=== PATIENT | female | born 1990 | race Caucasian/White ===

== ENCOUNTER 2017-02-21 09:25 | Inpatient (IN) | payer OTHER, MEDICAID ==
[2017-02-21] MEDS ORDERED: Lactated Ringers 1,000 ML IV ONE (10:16)
[2017-02-21] MEDS ORDERED: Betamethasone Acetate/Betamethasone Sod Phosphate 30 MG/5 ML MDV IM ONE (10:16)
[2017-02-21] MEDS ORDERED: Betamethasone Acetate/Betamethasone Sod Phosphate 30 MG/5 ML MDV ONE (10:17)
[2017-02-21] MEDS ORDERED: Lactated Ringers 1,000 ML ONE (10:18)
[2017-02-21] MEDS ORDERED: Citric Acid/Sodium Citrate Solution 30 ML Cup PO ONE (10:34)
[2017-02-21] MEDS ORDERED: ceFAZolin 2 GM in Premix Bag 1 BAG IV ONE (10:34)
[2017-02-21] MEDS ORDERED: Sodium Chloride 0.9% 10 ML Syringe FLUSH PRN (10:34)
[2017-02-21] MEDS ORDERED: Metoclopramide 10 MG/2 ML SDV IVPUSH ONE (10:34)
[2017-02-21] MEDS ORDERED: Metoclopramide 10 MG/2 ML SDV ONE (10:35)
[2017-02-21] MEDS ORDERED: Citric Acid/Sodium Citrate Solution 30 ML Cup ONE (10:36)
[2017-02-21] MEDS ORDERED: Lactated Ringers 1,000 ML IV SCH (10:45)
--- NOTE | 2017-02-21 11:35 | PCM.POSTAN ---
POST ANESTHESIA ASSESSMENT - MENTAL STATUS Mental Status: alert, oriented - VITAL SIGNS Pulse Rate: 83 SaO2: 100 Resp Rate: 13 Blood Pressure: 112/59 Temperature: 36.2 C - RESPIRATORY Respiratory Status: respiratory rate WNL, airway patent, O2 saturation stable, supplemental oxygen - CARDIOVASCULAR CV Status: pulse rate WNL, blood pressure stable - GASTROINTESTINAL GI Status: no symptoms - PAIN Pain Score: 0 - POST OP HYDRATION Hydration Status: adequate & stable
--- NOTE | 2017-02-21 11:39 | PCM.LDHP ---
L&D History of Present Illness - General Date of Service: 02/21/17 Admit Problem/Dx: Patient Status Order with Admit Dx/Problem 02/21/17 10:35 Patient Status [ADT] Routine Admission Diagnosis/Problem Admission Diagnosis/Problem Normal Source of Information: Patient History Limitations: Reports: No limitations - History of Present Illness Introduction:: Patient is a 26-year-old at 35-0/7 weeks who presented to labor and delivery after clinic evaluation this morning. She called in to clinic this morning with complaints of a moderate amount of bright red bleeding. Speculum exam done at that time showed scant amounts of blood. She was, however, asked to present to labor and delivery for an NST and repeat assessment. Approximately an hour into this monitoring she had a dramatic increase in bleeding and so I was called urgently. Patient at this time still complains of no pain. No fluid leaking other than blood. 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 Para: 0 Social & Family History - Tobacco Use Smoking Status *Q: Current Every Day Smoker - Alcohol Use Alcohol Use History: No - Recreational Drug Use Recreational Drug Use: No H&P Review of Systems - Review of Systems: Review Of Systems: See Below General: Reports: night sweats Pulmonary: Reports: No Symptoms Cardiovascular: Reports: no symptoms Gastrointestinal: Reports: No symptoms Genitourinary: Reports: other (bleeding) Musculoskeletal: Reports: no symptoms Psychiatric: Reports: no symptoms Neurological: Reports: No Symptoms L&D Exam - Exam Exam: See Below - Vital Signs Weight: 70.307 kg - OB Specific Contraction Intensity: Mild movement: active heart tones: present heart tones per min: 135 Heart Rate (FHR) Variability: Moderate (6-25 bmp) Presentation: Vertex - Exam General: alert, oriented, cooperative Lungs: Clear to auscultation, Normal respiratory effort Cardiovascular: regular rate, regular rhythm Abdomen: soft Genitourinary: Other (Patient with large amount of blood on pad along with clot) Extremities: normal inspection Skin: warm, dry, intact - Patient Data Lab Results last 24 hrs: Laboratory Results - last 24 hr 02/21/17 02/21/17 Range/Units 10:40 11:00 WBC 14.35 H (3.98-10.04) K/mm3 RBC 3.92 L (3.98-5.22) M/mm3 Hgb 12.3 (11.2-15.7) gm/L Hct 36.1 (34.1-44.9) % MCV 92.1 (79.4-94.8) fl MCH 31.4 (25.6-32.2) pg MCHC 34.1 (32.2-35.5) g/dl RDW Std Deviation 43.7 (36.4-46.3) fL Plt Count 41 L (182-369) K/mm3 MPV 11.3 (9.4-12.3) fl Cord ABG pH 7.30 (7.22-7.32) Cord ABG pCO2 53.5 (42-58) Cord ABG pO2 24 (12-24) Cord ABG HCO3 25.3 (24-26) Cord ABG Base Excess -1.5 (-5.5-0.1) Cord VBG pH 7.31 (7.28-7.40) Cord VBG pCO2 50.4 H (32.8-38.6) Cord VBG HCO3 24.5 H (19-24) Cord VBG Base Excess -1.9 (-4.4-0.4) Result Diagrams: 02/21/17 10:40 - Problem List (1) 35 weeks gestation of SNOMED Code(s): 11780975 ICD Code: Z3A.35 - 35 WEEKS GESTATION OF Status: Acute Current Visit: Yes (2) Placental abruption SNOMED Code(s): 444719355, 619433984 ICD Code: O45.90 - PREMATURE SEPARATION OF PLACENTA, UNSP, UNSP TRIMESTER Status: Acute Current Visit: Yes Qualifiers: Trimester: third trimester Qualified Code(s): O45.93 - Premature separation of placenta, unspecified, third trimester Problem List Initiated/Reviewed/Updated: Yes Orders Last 24hrs: Active Orders 24 hr Category Date Time Status Patient Status [ADT] Routine ADT 02/21/17 10:35 Active Communication Order [RC] ROUTINE Care 02/21/17 10:35 Active Heart Tones [RC] PER UNIT ROUTINE Care 02/21/17 10:35 Active Peripheral IV Care [RC] . DIRECTED Care 02/21/17 10:35 Active Procedure Site Prep Instruct [RC] ASDIRECTED Care 02/21/17 10:35 Active Verify Patient Consent Obtain [RC] PER UNIT ROUTINE Care 02/21/17 10:35 Active Vital Signs [RC] PFP Care 02/21/17 10:35 Active Nothing Per Oral Diet [DIET] Diet 02/21/17 Breakfast Active BLOOD GAS ARTERIAL UMBILICAL [BG] Routine Lab 02/21/17 11:00 Results BLOOD GAS VENOUS UMBILICAL [BG] Routine Lab 02/21/17 11:00 Results FIBRINOGEN [COAG] Stat Lab 02/21/17 10:34 Ordered INR,PT,PROTHROMBIN TIME [COAG] Stat Lab 02/21/17 10:34 Ordered PTT,PARTIAL THROMBOPLSTIN TIME [COAG] Stat Lab 02/21/17 10:34 Ordered TYPE AND SCREEN [BBK] Routine Lab 02/21/17 10:40 Received Lactated Ringers [Ringers, Lactated] 1,000 ml Med 02/21/17 10:45 Active IV ASDIRECTED Sodium Chloride 0.9% [Saline Flush] Med 02/21/17 10:34 Active 10 ml FLUSH ASDIRECTED PRN Peripheral IV Insertion Adult [OM.PC] Routine Oth 02/21/17 10:18 Ordered Peripheral IV Insertion Adult [OM.PC] Routine Oth 02/21/17 10:35 Ordered Schedule Procedure [COMM] Per Unit Routine Oth 02/21/17 10:35 Ordered Resuscitation Status Routine Resus Stat 02/21/17 10:34 Ordered Medication Orders Lactated Ringer's (Ringers, Lactated) 1,000 mls @ 125 mls/hr IV ASDIRECTED SARAH Sodium Chloride (Saline Flush) 10 ml FLUSH ASDIRECTED PRN PRN Reason: Keep Vein Open Assessment/Plan Comment:: 26-year-old at 35-0/7 weeks gestation with large amount of bleeding concerning for placental abruption. Stat CBC and type and screen along with fibrinogen, PT PTT to be drawn. Proceed immediately to . Ancef ordered. Or crew alerted along with Pediatrics.
--- NOTE | 2017-02-21 11:42 | PCM.OPNOTE ---
- General Post-Op/Procedure Note Date of Surgery/Procedure: 02/21/17 Operative Procedure(s): Primary low transverse Findings: * In OR when moving patient to operating bed there was ~500 cc of clot noted on linens. * With hysterotomy placenta attempted to delivery along with head - concerning for abruption * Baby boy in a vertex presentation with weight of 4 obs 10 oz and APGARS of 8 & 9 Pre Op Diagnosis: Vaginal bleeding - concerning for abruption. Post-Op Diagnosis: Same Anesthesia Technique: General ET tube Primary Surgeon: Temitope Poole Secondary Surgeon: Nicho Hernandez Anesthesia Provider: Ameya Ceballos Pathology: * Cord gas obtained * Cord blood obtained * Placenta sent to pathology Fluid Replacement, Intraop: 1,700 Output, Urine Amount: 50 EBL in mLs: 600 Complications: None Condition: Good Free Text/Narrative:: The risks, benefits, indications, potential complications, and alternatives were explained to the patient and informed consent obtained. The patient was placed in a supine position and then draped and prepped in the usual sterile manner. General anesthesia then induced. A Pfannenstiel incision was made and carried down through the subcutaneous tissue to the fascia. Fascial incision was made and extended transversely. The fascia was from the underlying rectus tissue superiorly and inferiorly. The peritoneum was identified and entered. Peritoneal incision was extended longitudinally. The utero-vesical peritoneal reflection was incised transversely and the bladder flap was bluntly freed from the lower uterine segment. A low transverse uterine incision was made sharply with a scalpel and extended bluntly in a cephalocaudad direction. A baby boy was delivered from a vertex presentation with APGARS as above. After the umbilical cord was clamped a segment was obtained for cord gas. Next, cut cord blood was obtained for evaluation. The placenta was removed intact and sent to pathology. The uterus was exteriorized and cleared of clots. The uterine outline, tubes and ovaries appeared normal. The uterine incision was closed with running locked sutures of 0 Vicryl. Hemostasis was obtained with a second imbricating layer of 0 vicryl. The uterus was then placed back into the abdomen. The infracolic gutters were cleared of blood clots. The fascia was then re-approximated with running sutures of 0 Vicryl. The subcutaneous tissue was irrigated with sterile warm normal saline, hemostasis obtained with cautery. This layer was also closed with a running 0 vicryl. The skin was re-approximated with running Subcuticular 4-0 monocryl sutures. Instrument, sponge, and needle counts were correct prior the abdominal closure and at the conclusion of the case.
--- NOTE | 2017-02-21 11:59 | PCM.PREANE ---
Preanesthetic Assessment - Anesthesia/Transfusion/Family Hx Anesthesia History: Prior Anesthesia Without Reaction Family History of Anesthesia Reaction: No Transfusion History: Prior Transfusion Without Reaction - Review of Systems General: No Symptoms Pulmonary: No Symptoms Cardiovascular: No Symptoms Gastrointestinal: No symptoms, Nausea (Tuesday) Neurological: No Symptoms Other: Reports: None - Physical Assessment NPO Status Date: 02/21/17 NPO Status Time: 10:00 Pulse: 83 O2 Sat by Pulse Oximetry: 100 Respiratory Rate: 13 Blood Pressure: 112/59 Temperature: 36.2 C Vital Signs: Last Vital Signs Temp 97.1 F 02/21/17 11:35 Pulse 83 02/21/17 11:35 Resp 13 02/21/17 11:35 BP 112/59 L 02/21/17 11:35 Pulse Ox 100 02/21/17 11:35 Height: 1.6 m Weight: 70.307 kg ASA Class: 2E Mental Status: Alert & Oriented x3 Airway Class: Mallampati = 1 Dentition: Reports: Normal Dentition Thyro-Mental Finger Breadths: 3 Mouth Opening Finger Breadths: 3 ROM/Head Extension: Full Lungs: Clear to auscultation, Normal respiratory effort Cardiovascular: Regular Rate, Regular Rhythm, No Murmurs - Lab Values: 02/21/17 hgb 12.3 Plt [id number] - Allergies Allergies/Adverse Reactions: Allergies Allergy/AdvReac Type Severity Reaction Status Date / Time No Known Allergies Allergy Verified 02/21/17 09:52 MDT - Blood Blood Available: No - Acknowledgements Anesthesia Type Planned: General Anesthesia Pt an Appropriate Candidate for the Planned Anesthesia: Yes Alternatives and Risks of Anesthesia Discussed w Pt/Guardian: Yes Pt/Guardian Understands and Agrees with Anesthesia Plan: Yes PreAnesthesia Questionnaire Cardiovascular History: Reports: None Respiratory History: Reports: None Gastrointestinal History: Reports: GERD (with preg occ) : 1 (35 weeks) Para: 0 - Past Surgical History HEENT Surgical History: Reports: Oral surgery - SUBSTANCE USE Smoking Status *Q: Current Every Day Smoker (half a pack a day for 10 years) Tobacco Use Within Last Twelve Months: No Second Hand Smoke Exposure: Yes Days Per Week of Alcohol Use: 0 (1 day a week since before ) Recreational Drug Use History: No - HOME MEDS Home Medications: Home Meds PNV95/Ferrous Fumarate/FA [ Tablet] 1 tab PO DAILY 12/05/16 [History] Acetaminophen/oxyCODONE [Percocet 325-5 MG] 2 tab PO Q4H PRN #30 tablet [Rx] Docusate Sodium [Colace] 100 mg PO Q12H PRN #0 cap 02/23/17 [Rx] Ibuprofen [IJD: Ibuprofen] 600 mg PO Q6H PRN #0 tablet 02/23/17 [Rx] - CURRENT (IN HOUSE) MEDS Current Meds: Current Medications Fentanyl (Sublimaze) 50 mcg IVPUSH Q5M PRN PRN Reason: Pain Hydromorphone HCl (Dilaudid) 0.5 mg IVPUSH Q15M PRN PRN Reason: severe pain Stop: 02/21/17 11:19 Meperidine HCl (Demerol) 12.5 mg IVPUSH ONETIME PRN PRN Reason: shivering Stop: 02/22/17 11:04 Ondansetron HCl (Zofran) 4 mg IVPUSH ONETIME PRN PRN Reason: Nausea/Vomiting Discontinued Medications Ephedrine Sulfate (Ephedrine In Ns) Confirm Administered Dose 25 mg .ROUTE .STK- MED ONE Stop: 02/21/17 11:23 Fentanyl (Sublimaze) Confirm Administered Dose 250 mcg .ROUTE .STK-MED ONE Stop: 02/21/17 11:12 Lidocaine HCl (Xylocaine-Mpf 1%) Confirm Administered Dose 4 mls @ as directed .ROUTE .STK-MED ONE Stop: 02/21/17 10:58 Lactated Ringer's (Ringers, Lactated) Confirm Administered Dose 1,000 mls @ as directed .ROUTE .STK-MED ONE Stop: 02/21/17 11:06 Lactated Ringer's (Ringers, Lactated) Confirm Administered Dose 1,000 mls @ as directed .ROUTE .STK-MED ONE Stop: 02/21/17 11:06 Morphine Sulfate (Duramorph Pf) Confirm Administered Dose 10 mg .ROUTE .STK-MED ONE Stop: 02/21/17 10:56 Oxytocin (Pitocin) Confirm Administered Dose 20 unit .ROUTE .STK-MED ONE Stop: 02/21/17 11:04 Propofol (Diprivan 20 Ml) Confirm Administered Dose 200 mg .ROUTE .STK-MED ONE Stop: 02/21/17 10:58 Succinylcholine Chloride (Succinylcholine In Ns Pf) Confirm Administered Dose 100 mg .ROUTE .STK-MED ONE Stop: 02/21/17 10:58 Preanesthetic Assessment - PHYSICAL ASSESSMENT HR: 83 O2 Sat by Pulse Oximetry: 100 RR: 13 BP: 112/59 Temp: 36.2 C Vital Signs: Last Vital Signs Temp 97.1 F 02/21/17 11:35 Pulse 83 02/21/17 11:35 Resp 13 02/21/17 11:35 BP 112/59 L 02/21/17 11:35 Pulse Ox 100 02/21/17 11:35 Height: 1.6 m Weight: 70.307 kg - ALLERGIES Allergies/Adverse Reactions: Allergies Allergy/AdvReac Type Severity Reaction Status Date / Time No Known Allergies Allergy Verified 02/21/17 09:52 MDT
[2017-02-21] MEDS ORDERED: diphenhydrAMINE 50 MG/ML SDV IVPUSH PRN (13:09)
[2017-02-21] MEDS ORDERED: Ondansetron 4 MG/2 ML SDV IV PRN (13:09)
[2017-02-21] MEDS ORDERED: Dextrose 5%-0.45% NaCl 1,000 ML IV SCH (13:09)
[2017-02-21] MEDS ORDERED: Dextrose 5%-Lactated Ringers 1,000 ML IV SCH (13:09)
[2017-02-21] MEDS ORDERED: Docusate Sodium 100 MG Cap PO PRN (13:09)
[2017-02-21] MEDS ORDERED: Lanolin 100% Cream 7 GM Tube TOP PRN (13:09)
[2017-02-21] MEDS: Acetaminophen/oxyCODONE 325-5 MG Tab PO PRN ×2 (16:25→20:34)
[2017-02-21] MEDS: ceFAZolin 1 GM in Premix Bag 1 BAG IV SCH (16:38)
[2017-02-22] MEDS: Acetaminophen/oxyCODONE 325-5 MG Tab PO PRN ×4 (00:37→21:57)
[2017-02-22] MEDS: ceFAZolin 1 GM in Premix Bag 1 BAG IV SCH (00:55)
--- NOTE | 2017-02-22 07:10 | PCM.PNPP ---
- General Info Date of Service: 02/22/17 Functional Status: Reports: pain controlled, tolerating diet, ambulating, urinating - Review of Systems General: Reports: No Symptoms Pulmonary: Reports: no symptoms Cardiovascular: Reports: No Symptoms Gastrointestinal: Reports: No symptoms Genitourinary: Reports: no symptoms Musculoskeletal: Reports: no symptoms - Patient Data Vital Signs - most recent: Last Vital Signs Temp 36.5 C 02/22/17 04:35 Pulse 76 02/22/17 04:35 Resp 18 02/22/17 04:35 BP 123/55 L 02/22/17 04:35 Pulse Ox 94 L 02/22/17 04:35 Weight - most recent: 70.307 kg I&O - last 24 hours: Intake & Output 02/21/17 02/22/17 02/22/17 22:59 06:59 14:59 Intake Total 0 Output Total 1300 750 Balance -1300 -750 Lab Results - last 24 hrs: Laboratory Results - last 24 hr 02/21/17 02/21/17 02/21/17 Range/Units 10:40 10:40 11:00 WBC 14.35 H (3.98-10.04) K/mm3 RBC 3.92 L (3.98-5.22) M/mm3 Hgb 12.3 (11.2-15.7) gm/L Hct 36.1 (34.1-44.9) % MCV 92.1 (79.4-94.8) fl MCH 31.4 (25.6-32.2) pg MCHC 34.1 (32.2-35.5) g/dl RDW Std Deviation 43.7 (36.4-46.3) fL Plt Count 41 L (182-369) K/mm3 MPV 11.3 (9.4-12.3) fl PT (8.0-13.0) SECONDS INR APTT (22-36) SECONDS Fibrinogen (200-400) mg/dL Cord ABG pH 7.30 (7.22-7.32) Cord ABG pCO2 53.5 (42-58) Cord ABG pO2 24 (12-24) Cord ABG HCO3 25.3 (24-26) Cord ABG Base Excess -1.5 (-5.5-0.1) Cord VBG pH 7.31 (7.28-7.40) Cord VBG pCO2 50.4 H (32.8-38.6) Cord VBG pO2 34 H (28-32) Cord VBG HCO3 24.5 H (19-24) Cord VBG Base Excess -1.9 (-4.4-0.4) Urine Opiates Screen (NEGATIVE) Ur Buprenorphine Scrn (NEGATIVE) Ur Oxycodone Screen (NEGATIVE) Urine Methadone Screen (NEGATIVE) Ur Propoxyphene Screen (NEGATIVE) Ur Barbiturates Screen (NEGATIVE) Ur Tricyclics Screen (NEGATIVE) Ur Phencyclidine Scrn (NEGATIVE) Ur Amphetamine Screen (NEGATIVE) U Methamphetamines Scrn (NEGATIVE) U Benzodiazepines Scrn (NEGATIVE) U Cocaine Metab Screen (NEGATIVE) U Marijuana (THC) Screen (NEGATIVE) Blood Type A POSITIVE Gel Antibody Screen Negative 02/21/17 02/21/17 Range/Units 11:47 16:25 WBC (3.98-10.04) K/mm3 RBC (3.98-5.22) M/mm3 Hgb (11.2-15.7) gm/L Hct (34.1-44.9) % MCV (79.4-94.8) fl MCH (25.6-32.2) pg MCHC (32.2-35.5) g/dl RDW Std Deviation (36.4-46.3) fL Plt Count (182-369) K/mm3 MPV (9.4-12.3) fl PT 9.6 (8.0-13.0) SECONDS INR 0.89 APTT 27 (22-36) SECONDS Fibrinogen 423.5 H (200-400) mg/dL Cord ABG pH (7.22-7.32) Cord ABG pCO2 (42-58) Cord ABG pO2 (12-24) Cord ABG HCO3 (24-26) Cord ABG Base Excess (-5.5-0.1) Cord VBG pH (7.28-7.40) Cord VBG pCO2 (32.8-38.6) Cord VBG pO2 (28-32) Cord VBG HCO3 (19-24) Cord VBG Base Excess (-4.4-0.4) Urine Opiates Screen Presumptive positive H (NEGATIVE) Ur Buprenorphine Scrn Negative (NEGATIVE) Ur Oxycodone Screen Negative (NEGATIVE) Urine Methadone Screen Negative (NEGATIVE) Ur Propoxyphene Screen Negative (NEGATIVE) Ur Barbiturates Screen Negative (NEGATIVE) Ur Tricyclics Screen Negative (NEGATIVE) Ur Phencyclidine Scrn Negative (NEGATIVE) Ur Amphetamine Screen Negative (NEGATIVE) U Methamphetamines Scrn Negative (NEGATIVE) U Benzodiazepines Scrn Negative (NEGATIVE) U Cocaine Metab Screen Negative (NEGATIVE) U Marijuana (THC) Screen Negative (NEGATIVE) Blood Type Gel Antibody Screen Med Orders - Current: Current Medications Diphenhydramine HCl (Benadryl) 25 mg IVPUSH Q6H PRN PRN Reason: Itching or Nausea Docusate Sodium (Colace) 100 mg PO Q12H PRN PRN Reason: Constipation Emollient Ointment (Lansinoh Hpa) 0 gm TOP ASDIRECTED PRN PRN Reason: Sore Nipples Dextrose/Sodium Chloride (Dextrose 5%-1/2 Ns) 1,000 mls @ 125 mls/hr IV ASDIRECTED SARAH Ondansetron HCl (Zofran) 4 mg IV Q8H PRN PRN Reason: Nausea/Vomiting Oxycodone/Acetaminophen (Percocet 325-5 Mg) 2 tab PO Q4H PRN PRN Reason: Pain (moderate 4-6) Last Admin: 02/22/17 05:28 Dose: 1 tab Discontinued Medications Betamethasone Acet/Betameth SodPhos (Celestone Soluspan 6 Mg/Ml) 12 mg IM ONETIME ONE Stop: 02/21/17 10:17 Last Admin: 02/21/17 10:35 Dose: 12 mg Betamethasone Acet/Betameth SodPhos (Celestone Soluspan 6 Mg/Ml) Confirm Administered Dose 30 mg .ROUTE .STK-MED ONE Stop: 02/21/17 10:18 Last Admin: 02/21/17 14:19 Dose: Not Given Citric Acid/Sodium Citrate (Bicitra Solution) 30 ml PO ONETIME ONE Stop: 02/21/17 10:35 Last Admin: 02/21/17 10:38 Dose: 30 ml Citric Acid/Sodium Citrate (Bicitra Solution) Confirm Administered Dose 30 ml .ROUTE .STK-MED ONE Stop: 02/21/17 10:37 Last Admin: 02/21/17 14:58 Dose: Not Given Lactated Ringer's (Ringers, Lactated) 1,000 mls @ 1,000 mls/hr IV .BOLUS ONE Stop: 02/21/17 11:15 Last Admin: 02/21/17 10:30 Dose: 1,000 mls/hr Lactated Ringer's (Ringers, Lactated) Confirm Administered Dose 1,000 mls @ as directed .ROUTE .STK-MED ONE Stop: 02/21/17 10:19 Last Admin: 02/21/17 14:19 Dose: Not Given Lactated Ringer's (Ringers, Lactated) 1,000 mls @ 125 mls/hr IV ASDIRECTED SARAH Cefazolin Sodium/Dextrose 2 gm (/ Premix) 50 mls @ 100 mls/hr IV ONETIME ONE Stop: 02/21/17 11:03 Last Admin: 02/21/17 14:20 Dose: Not Given Dextrose/Lactated Ringer's (Dextrose 5%-Lactated Ringers) 1,000 mls @ 125 mls/ hr IV ASDIRECTED SARAH Stop: 02/21/17 21:08 Last Admin: 02/21/17 16:27 Dose: Not Given Cefazolin Sodium/Dextrose 1 gm (/ Premix) 50 mls @ 100 mls/hr IV Q8H SARAH Stop: 02/22/17 01:29 Last Admin: 02/22/17 00:55 Dose: 100 mls/hr Metoclopramide HCl (Reglan) 10 mg IVPUSH ONETIME ONE Stop: 02/21/17 10:35 Last Admin: 02/21/17 10:37 Dose: 10 mg Metoclopramide HCl (Reglan) Confirm Administered Dose 10 mg .ROUTE .STK-MED ONE Stop: 02/21/17 10:36 Last Admin: 02/21/17 14:58 Dose: Not Given Sodium Chloride (Saline Flush) 10 ml FLUSH ASDIRECTED PRN PRN Reason: Keep Vein Open - Interaction Infant Disposition, : in Room with Family Infant Interaction: Holding Feeding: Attempted ; Nursed Fair/Poor Support Person: - Recovery Exam Fundal Tone: Firm Fundal Level: 1 Fingerbreadths Below Umbilicus Fundal Placement: Midline Lochia Amount: Moderate Lochia Color: Rubra/Red Perineum Description: Intact, Minimal Bruising/Swelling Episiotomy/Laceration: None Bladder Status: Voiding Urinary Elimination: Voided - Exam General: alert, oriented, cooperative Lungs: Clear to auscultation, Normal respiratory effort Cardiovascular: Regular Rate, Regular Rhythm Abdomen: soft, tenderness (appropriate post op) Extremities: no edema Skin: warm, dry, intact Wound/Incisions: dressing dry and intact - Problem List & Annotations (1) 35 weeks gestation of SNOMED Code(s): 47536731 Code(s): Z3A.35 - 35 WEEKS GESTATION OF Status: Acute Current Visit: Yes (2) Placental abruption SNOMED Code(s): 949827889, 617632901 Code(s): O45.90 - PREMATURE SEPARATION OF PLACENTA, UNSP, UNSP TRIMESTER Status: Acute Current Visit: Yes Qualifiers: Trimester: third trimester Qualified Code(s): O45.93 - Premature separation of placenta, unspecified, third trimester (3) S/P primary low transverse SNOMED Code(s): 436873948, 586409107, 737296682, 107542681 Code(s): Z98.891 - HISTORY OF UTERINE SCAR FROM PREVIOUS SURGERY Status: Acute Current Visit: Yes - Problem List Review Problem List Initiated/Reviewed/Updated: Yes - My Orders Last 24 Hours: My Active Orders 02/21/17 10:34 Resuscitation Status Routine 02/21/17 10:35 Communication Order [RC] ROUTINE Heart Tones [RC] PER UNIT ROUTINE Peripheral IV Care [RC] . DIRECTED Procedure Site Prep Instruct [RC] ASDIRECTED Verify Patient Consent Obtain [RC] PER UNIT ROUTINE Vital Signs [RC] PFP 02/21/17 13:09 Activity as Tolerated [RC] .Routine Antiembolic Devices [RC] Communication Order [RC] Intake and Output [RC] Q4HR May Shower [RC] Notify Provider Intake and Out [RC] ASDIRECTED RT Incentive Spirometry [RC] Q2HWA Vital Signs [RC] Q4HR Acetaminophen/oxyCODONE [Percocet 325-5 MG] 2 tab PO Q4H PRN Dextrose 5%-0.45% NaCl [Dextrose 5%-1/2 NS] 1,000 ml IV ASDIRECTED Docusate Sodium [Colace] 100 mg PO Q12H PRN Lanolin [Lansinoh HPA] See Dose Instructions TOP ASDIRECTED PRN Ondansetron [Zofran] 4 mg IV Q8H PRN diphenhydrAMINE [Benadryl] 25 mg IVPUSH Q6H PRN Assess Lochia [WOMSER] Per Unit Routine Assess Uterine Involution [WOMSER] Per Unit Routine Breast Pump [WOMSER] Per Unit Routine Heat Therapy [OM.PC] Per Unit Routine Sequential Compression Device [OM.PC] Per Unit Routine 02/21/17 Lunch Regular Diet [DIET] 02/22/17 05:11 CBC W/O DIFF,HEMOGRAM [HEME] AM - Assessment Assessment:: 26 y/o G1 now P0101 POD#1 from [facility] at 35 0/7 wks due to placenta abruption - Plan Plan:: Post op * Routine cares * Encourage breast feeding * Discharge home in 2 days * UDS done for abruption and positive for opiates, but collected in PACU. As expected positive from medications given during surgery. No positive for cocaine or methamphetamine * CBC from this AM pending
--- NOTE | 2017-02-22 09:02 | PCM48HPAN ---
Post Anesthesia Note - EVALUATION WITHIN 48HRS OF ANESTHETIC Vital Signs in Normal Range: Yes Patient Participated in Evaluation: Yes Respiratory Function Stable: Yes Airway Patent: Yes Cardiovascular Function Stable: Yes Hydration Status Stable: Yes Pain Control Satisfactory: Yes Nausea and Vomiting Control Satisfactory: Yes Mental Status Recovered: Yes - COMMENTS/OBSERVATIONS Free Text/Narrative:: Pt reports doing well after general anesthetic yesterday. no n/v, f/c. no recall. taking p.o. ambulating and using restroom.
--- NOTE | 2017-02-23 07:07 | PCM.PNPP ---
- General Info Date of Service: 02/23/17 Functional Status: Reports: pain controlled, tolerating diet, ambulating, urinating - Review of Systems General: Reports: No Symptoms Pulmonary: Reports: no symptoms Cardiovascular: Reports: No Symptoms Gastrointestinal: Reports: Abdominal pain Genitourinary: Reports: no symptoms Musculoskeletal: Reports: no symptoms - Patient Data Vital Signs - most recent: Last Vital Signs Temp 37.4 C 02/23/17 03:50 Pulse 95 02/23/17 03:50 Resp 14 02/23/17 03:50 BP 119/65 02/23/17 03:50 Pulse Ox 93 L 02/23/17 03:50 Weight - most recent: 70.307 kg I&O - last 24 hours: Intake & Output 02/22/17 02/23/17 02/23/17 22:59 06:59 14:59 Intake Total 100 Balance 100 Lab Results - last 24 hrs: Laboratory Results - last 24 hr 02/22/17 02/23/17 Range/Units 06:45 06:20 WBC 25.72 H 25.75 H (3.98-10.04) K/mm3 RBC 2.65 L 2.73 L (3.98-5.22) M/mm3 Hgb 8.4 L 8.6 L (11.2-15.7) gm/L Hct 25.1 L 25.9 L (34.1-44.9) % MCV 94.7 94.9 H (79.4-94.8) fl MCH 31.7 31.5 (25.6-32.2) pg MCHC 33.5 33.2 (32.2-35.5) g/dl RDW Std Deviation 43.3 45.1 (36.4-46.3) fL Plt Count 81 L 102 L (182-369) K/mm3 MPV 10.8 10.8 (9.4-12.3) fl Med Orders - Current: Current Medications Diphenhydramine HCl (Benadryl) 25 mg IVPUSH Q6H PRN PRN Reason: Itching or Nausea Docusate Sodium (Colace) 100 mg PO Q12H PRN PRN Reason: Constipation Emollient Ointment (Lansinoh Hpa) 0 gm TOP ASDIRECTED PRN PRN Reason: Sore Nipples Dextrose/Sodium Chloride (Dextrose 5%-1/2 Ns) 1,000 mls @ 125 mls/hr IV ASDIRECTED [facility] Ibuprofen (Motrin) 600 mg PO Q6H PRN PRN Reason: Pain Ondansetron HCl (Zofran) 4 mg IV Q8H PRN PRN Reason: Nausea/Vomiting Oxycodone/Acetaminophen (Percocet 325-5 Mg) 2 tab PO Q4H PRN PRN Reason: Pain (moderate 4-6) Last Admin: 02/22/17 21:57 Dose: 1 tab Discontinued Medications Betamethasone Acet/Betameth SodPhos (Celestone Soluspan 6 Mg/Ml) 12 mg IM ONETIME ONE Stop: 02/21/17 10:17 Last Admin: 02/21/17 10:35 Dose: 12 mg Betamethasone Acet/Betameth SodPhos (Celestone Soluspan 6 Mg/Ml) Confirm Administered Dose 30 mg .ROUTE .STK-MED ONE Stop: 02/21/17 10:18 Last Admin: 02/21/17 14:19 Dose: Not Given Citric Acid/Sodium Citrate (Bicitra Solution) 30 ml PO ONETIME ONE Stop: 02/21/17 10:35 Last Admin: 02/21/17 10:38 Dose: 30 ml Citric Acid/Sodium Citrate (Bicitra Solution) Confirm Administered Dose 30 ml .ROUTE .STK-MED ONE Stop: 02/21/17 10:37 Last Admin: 02/21/17 14:58 Dose: Not Given Lactated Ringer's (Ringers, Lactated) 1,000 mls @ 1,000 mls/hr IV .BOLUS ONE Stop: 02/21/17 11:15 Last Admin: 02/21/17 10:30 Dose: 1,000 mls/hr Lactated Ringer's (Ringers, Lactated) Confirm Administered Dose 1,000 mls @ as directed .ROUTE .STK-MED ONE Stop: 02/21/17 10:19 Last Admin: 02/21/17 14:19 Dose: Not Given Lactated Ringer's (Ringers, Lactated) 1,000 mls @ 125 mls/hr IV ASDIRECTED [facility] Cefazolin Sodium/Dextrose 2 gm (/ Premix) 50 mls @ 100 mls/hr IV ONETIME ONE Stop: 02/21/17 11:03 Last Admin: 02/21/17 14:20 Dose: Not Given Dextrose/Lactated Ringer's (Dextrose 5%-Lactated Ringers) 1,000 mls @ 125 mls/ hr IV ASDIRECTED [facility] Stop: 02/21/17 21:08 Last Admin: 02/21/17 16:27 Dose: Not Given Cefazolin Sodium/Dextrose 1 gm (/ Premix) 50 mls @ 100 mls/hr IV Q8H [facility] Stop: 02/22/17 01:29 Last Admin: 02/22/17 00:55 Dose: 100 mls/hr Metoclopramide HCl (Reglan) 10 mg IVPUSH ONETIME ONE Stop: 02/21/17 10:35 Last Admin: 02/21/17 10:37 Dose: 10 mg Metoclopramide HCl (Reglan) Confirm Administered Dose 10 mg .ROUTE .STK-MED ONE Stop: 02/21/17 10:36 Last Admin: 02/21/17 14:58 Dose: Not Given Sodium Chloride (Saline Flush) 10 ml FLUSH ASDIRECTED PRN PRN Reason: Keep Vein Open - Infant Interaction Disposition, : in Room with Family Infant Interaction: Holding Infant Feeding: Attempted ; Nursed Fair/Poor, Bottle Fed Support Person: - Recovery Exam Fundal Tone: Firm Fundal Level: At Umbilicus Fundal Placement: Midline Lochia Amount: Small Lochia Color: Rubra/Red Perineum Description: Intact, Minimal Bruising/Swelling Episiotomy/Laceration: None Bladder Status: Voiding Urinary Elimination: Voided - Exam General: alert, oriented, cooperative Lungs: Clear to auscultation, Normal respiratory effort Cardiovascular: Regular Rate, Regular Rhythm Abdomen: soft, tenderness (appropriate ) Extremities: no edema Skin: warm, dry, intact Wound/Incisions: healing well, no drainage - Problem List & Annotations (1) 35 weeks gestation of SNOMED Code(s): 30093774 Code(s): Z3A.35 - 35 WEEKS GESTATION OF Status: Acute Current Visit: Yes (2) Placental abruption SNOMED Code(s): 863434858, 899624777 Code(s): O45.90 - PREMATURE SEPARATION OF PLACENTA, UNSP, UNSP TRIMESTER Status: Acute Current Visit: Yes Qualifiers: Trimester: third trimester Qualified Code(s): O45.93 - Premature separation of placenta, unspecified, third trimester (3) S/P primary low transverse SNOMED Code(s): 898069404, 298254429, 135410600, 304304057 Code(s): Z98.891 - HISTORY OF UTERINE SCAR FROM PREVIOUS SURGERY Status: Acute Current Visit: Yes - Problem List Review Problem List Initiated/Reviewed/Updated: Yes - My Orders Last 24 Hours: My Active Orders 02/23/17 07:06 Ibuprofen [Motrin] 600 mg PO Q6H PRN - Assessment Assessment:: 26 y/o G1 now P0101 POD#2 from [facility] at 35 0/7 wks due to placenta abruption - Plan Plan:: Post op * Routine cares * Patient's platelets now up to 100K from a low of 40K prior to surgery. Will add in ibuprofen to percocet regimen for pain control. No further blood counts planned * Encourage breast feeding * Discharge home tomorrow
[2017-02-23] MEDS: Ibuprofen 600 MG Tab PO PRN ×2 (10:22→19:16)
[2017-02-24] MEDS: Ibuprofen 600 MG Tab PO PRN (03:07)
--- NOTE | 2017-02-24 07:27 | PCM.PNPP ---
- General Info Date of Service: 02/24/17 Functional Status: Reports: pain controlled, tolerating diet, ambulating, urinating - Review of Systems General: Reports: No Symptoms Pulmonary: Reports: no symptoms Cardiovascular: Reports: No Symptoms Gastrointestinal: Reports: No symptoms Genitourinary: Reports: no symptoms Musculoskeletal: Reports: no symptoms - Patient Data Vital Signs - most recent: Last Vital Signs Temp 36.8 C 02/24/17 03:04 Pulse 87 02/24/17 03:04 Resp 15 02/24/17 03:04 BP 110/62 02/24/17 03:04 Pulse Ox 98 02/24/17 03:04 Weight - most recent: 70.307 kg Med Orders - Current: Current Medications Diphenhydramine HCl (Benadryl) 25 mg IVPUSH Q6H PRN PRN Reason: Itching or Nausea Docusate Sodium (Colace) 100 mg PO Q12H PRN PRN Reason: Constipation Emollient Ointment (Lansinoh Hpa) 0 gm TOP ASDIRECTED PRN PRN Reason: Sore Nipples Last Admin: 02/23/17 08:50 Dose: 1 applic Dextrose/Sodium Chloride (Dextrose 5%-1/2 Ns) 1,000 mls @ 125 mls/hr IV ASDIRECTED [facility] Ibuprofen (Motrin) 600 mg PO Q6H PRN PRN Reason: Pain Last Admin: 02/24/17 03:07 Dose: 600 mg Ondansetron HCl (Zofran) 4 mg IV Q8H PRN PRN Reason: Nausea/Vomiting Oxycodone/Acetaminophen (Percocet 325-5 Mg) 2 tab PO Q4H PRN PRN Reason: Pain (moderate 4-6) Last Admin: 02/22/17 21:57 Dose: 1 tab Discontinued Medications Betamethasone Acet/Betameth SodPhos (Celestone Soluspan 6 Mg/Ml) 12 mg IM ONETIME ONE Stop: 02/21/17 10:17 Last Admin: 02/21/17 10:35 Dose: 12 mg Betamethasone Acet/Betameth SodPhos (Celestone Soluspan 6 Mg/Ml) Confirm Administered Dose 30 mg .ROUTE .STK-MED ONE Stop: 02/21/17 10:18 Last Admin: 02/21/17 14:19 Dose: Not Given Citric Acid/Sodium Citrate (Bicitra Solution) 30 ml PO ONETIME ONE Stop: 02/21/17 10:35 Last Admin: 02/21/17 10:38 Dose: 30 ml Citric Acid/Sodium Citrate (Bicitra Solution) Confirm Administered Dose 30 ml .ROUTE .STK-MED ONE Stop: 02/21/17 10:37 Last Admin: 02/21/17 14:58 Dose: Not Given Lactated Ringer's (Ringers, Lactated) 1,000 mls @ 1,000 mls/hr IV .BOLUS ONE Stop: 02/21/17 11:15 Last Admin: 02/21/17 10:30 Dose: 1,000 mls/hr Lactated Ringer's (Ringers, Lactated) Confirm Administered Dose 1,000 mls @ as directed .ROUTE .STK-MED ONE Stop: 02/21/17 10:19 Last Admin: 02/21/17 14:19 Dose: Not Given Lactated Ringer's (Ringers, Lactated) 1,000 mls @ 125 mls/hr IV ASDIRECTED [facility] Cefazolin Sodium/Dextrose 2 gm (/ Premix) 50 mls @ 100 mls/hr IV ONETIME ONE Stop: 02/21/17 11:03 Last Admin: 02/21/17 14:20 Dose: Not Given Dextrose/Lactated Ringer's (Dextrose 5%-Lactated Ringers) 1,000 mls @ 125 mls/ hr IV ASDIRECTED [facility] Stop: 02/21/17 21:08 Last Admin: 02/21/17 16:27 Dose: Not Given Cefazolin Sodium/Dextrose 1 gm (/ Premix) 50 mls @ 100 mls/hr IV Q8H [facility] Stop: 02/22/17 01:29 Last Admin: 02/22/17 00:55 Dose: 100 mls/hr Metoclopramide HCl (Reglan) 10 mg IVPUSH ONETIME ONE Stop: 02/21/17 10:35 Last Admin: 02/21/17 10:37 Dose: 10 mg Metoclopramide HCl (Reglan) Confirm Administered Dose 10 mg .ROUTE .STK-MED ONE Stop: 02/21/17 10:36 Last Admin: 02/21/17 14:58 Dose: Not Given Sodium Chloride (Saline Flush) 10 ml FLUSH ASDIRECTED PRN PRN Reason: Keep Vein Open - Interaction Disposition, : [place] in Room with Family Infant Interaction: Holding Infant Feeding: Attempted ; Nursed Fair/Poor, Bottle Fed Infant Support Person: - Recovery Exam Fundal Tone: Firm Fundal Level: 1 Fingerbreadths Below Umbilicus Fundal Placement: Midline Lochia Amount: Small Lochia Color: Rubra/Red Perineum Description: Intact, Minimal Bruising/Swelling Episiotomy/Laceration: None Bladder Status: Voiding Urinary Elimination: Voided - Exam General: alert, oriented, cooperative Lungs: Clear to auscultation, Normal respiratory effort Cardiovascular: Regular Rate, Regular Rhythm Abdomen: soft, no tenderness Extremities: no edema Skin: warm, dry, intact Wound/Incisions: healing well, no drainage - Problem List & Annotations (1) 35 weeks gestation of SNOMED Code(s): 89267917 Code(s): Z3A.35 - 35 WEEKS GESTATION OF Status: Acute Current Visit: Yes (2) Placental abruption SNOMED Code(s): 378363675, 355793510 Code(s): O45.90 - PREMATURE SEPARATION OF PLACENTA, UNSP, UNSP TRIMESTER Status: Acute Current Visit: Yes Qualifiers: Trimester: third trimester Qualified Code(s): O45.93 - Premature separation of placenta, unspecified, third trimester (3) S/P primary low transverse SNOMED Code(s): 002655079, 112964949, 574872795, 554920652 Code(s): Z98.891 - HISTORY OF UTERINE SCAR FROM PREVIOUS SURGERY Status: Acute Current Visit: Yes - Problem List Review Problem List Initiated/Reviewed/Updated: Yes - My Orders Last 24 Hours: My Active Orders 02/23/17 07:06 Ibuprofen [Motrin] 600 mg PO Q6H PRN - Assessment Assessment:: 26 y/o G1 now P0101 POD#3 from [facility] at 35 0/7 wks due to placenta abruption - Plan Plan:: Post op * Routine cares * Encourage breast feeding * Discharge home today
--- NOTE | 2017-02-24 07:30 | PCM.DCSUM1 ---
Discharge Summary - Discharge Data Discharge Date: 02/24/17 Discharge Disposition: Home, Self-Care 01 Condition: Good - Discharge Diagnosis/Problem(s) (1) 35 weeks gestation of SNOMED Code(s): 44255795 ICD Code: Z3A.35 - 35 WEEKS GESTATION OF Status: Acute Current Visit: Yes (2) Placental abruption SNOMED Code(s): 053858178, 087080638 ICD Code: O45.90 - PREMATURE SEPARATION OF PLACENTA, UNSP, UNSP TRIMESTER Status: Acute Current Visit: Yes Qualifiers: Trimester: third trimester Qualified Code(s): O45.93 - Premature separation of placenta, unspecified, third trimester (3) S/P primary low transverse SNOMED Code(s): 005621382, 845269859, 686007275, 132206543 ICD Code: Z98.891 - HISTORY OF UTERINE SCAR FROM PREVIOUS SURGERY Status: Acute Current Visit: Yes - Patient Summary/Data Operative Procedure(s) Performed: Primary low transverse Complications: None Consults: None Recommended Follow-up Testing/Procedures: Follow up with Dr. Poole in 1-2 weeks for incision check Hospital Course: 26 y/o admitted at 35 0/7 wks for complaints of bleeding/spotting. She was first seen in clinic where speculum examination was done which did not document much bleeding, but she was sent to L&D for prolonged monitoring and planned repeat examination. Before next examination patient had a substantial increase in bleeding and began soaking through pads and passing large clots. Stat called and labs revealed plts of 41K consistent with placenta abruption. uncomplicated. See delivery note. she did well and was meeting all goals by POD#3 and was thus discharged to home. - Patient Instructions Diet: Regular Diet as Tolerated Activity: No Lifting Over 10 Pounds Activity, Other: Pelvic rest for 6 weeks Driving: Do Not Drive (While taking narcotics ) Showering/Bathing: May Shower, No Tub Bathing/Swimming Wound/Incision Care: Keep Operative Site/Wound Site Clean and Dry Notify Provider of: Fever, Increased Pain, Swelling and Redness, Drainage, Nausea and/or Vomiting - Discharge Plan Prescriptions/Med Rec: Acetaminophen/oxyCODONE [Percocet 325-5 MG] 2 tab PO Q4H PRN #30 tablet PRN Reason: Pain Home Medications: Home Meds PNV95/Ferrous Fumarate/FA [ Tablet] 1 tab PO DAILY 12/05/16 [History] Acetaminophen/oxyCODONE [Percocet 325-5 MG] 2 tab PO Q4H PRN #30 tablet [Rx] Docusate Sodium [Colace] 100 mg PO Q12H PRN #0 cap 02/23/17 [Rx] Ibuprofen [IJD: Ibuprofen] 600 mg PO Q6H PRN #0 tablet 02/23/17 [Rx] Patient Handouts: Smoking Cessation, Tips for Success, [id number], Smoking Hazards, Delivery, Care After, Breast Pumping Tips, [id number], Challenges and Solutions Referrals: Temitope Poole MD [Primary Care Provider] - (1-2 weeks for incision check ) - Discharge Summary/Plan Comment DC Time >30 min.: No - Patient Data Vitals - Most Recent: Last Vital Signs Temp 36.8 C 02/24/17 03:04 Pulse 87 02/24/17 03:04 Resp 15 02/24/17 03:04 BP 110/62 02/24/17 03:04 Pulse Ox 98 02/24/17 03:04 Weight - Most Recent: 70.307 kg Med Orders - Current: Current Medications Diphenhydramine HCl (Benadryl) 25 mg IVPUSH Q6H PRN PRN Reason: Itching or Nausea Docusate Sodium (Colace) 100 mg PO Q12H PRN PRN Reason: Constipation Emollient Ointment (Lansinoh Hpa) 0 gm TOP ASDIRECTED PRN PRN Reason: Sore Nipples Last Admin: 02/23/17 08:50 Dose: 1 applic Dextrose/Sodium Chloride (Dextrose 5%-1/2 Ns) 1,000 mls @ 125 mls/hr IV ASDIRECTED [facility] Ibuprofen (Motrin) 600 mg PO Q6H PRN PRN Reason: Pain Last Admin: 02/24/17 03:07 Dose: 600 mg Ondansetron HCl (Zofran) 4 mg IV Q8H PRN PRN Reason: Nausea/Vomiting Oxycodone/Acetaminophen (Percocet 325-5 Mg) 2 tab PO Q4H PRN PRN Reason: Pain (moderate 4-6) Last Admin: 02/22/17 21:57 Dose: 1 tab Discontinued Medications Betamethasone Acet/Betameth SodPhos (Celestone Soluspan 6 Mg/Ml) 12 mg IM ONETIME ONE Stop: 02/21/17 10:17 Last Admin: 02/21/17 10:35 Dose: 12 mg Betamethasone Acet/Betameth SodPhos (Celestone Soluspan 6 Mg/Ml) Confirm Administered Dose 30 mg .ROUTE .STK-MED ONE Stop: 02/21/17 10:18 Last Admin: 02/21/17 14:19 Dose: Not Given Citric Acid/Sodium Citrate (Bicitra Solution) 30 ml PO ONETIME ONE Stop: 02/21/17 10:35 Last Admin: 02/21/17 10:38 Dose: 30 ml Citric Acid/Sodium Citrate (Bicitra Solution) Confirm Administered Dose 30 ml .ROUTE .STK-MED ONE Stop: 02/21/17 10:37 Last Admin: 02/21/17 14:58 Dose: Not Given Lactated Ringer's (Ringers, Lactated) 1,000 mls @ 1,000 mls/hr IV .BOLUS ONE Stop: 02/21/17 11:15 Last Admin: 02/21/17 10:30 Dose: 1,000 mls/hr Lactated Ringer's (Ringers, Lactated) Confirm Administered Dose 1,000 mls @ as directed .ROUTE .STK-MED ONE Stop: 02/21/17 10:19 Last Admin: 02/21/17 14:19 Dose: Not Given Lactated Ringer's (Ringers, Lactated) 1,000 mls @ 125 mls/hr IV ASDIRECTED [facility] Cefazolin Sodium/Dextrose 2 gm (/ Premix) 50 mls @ 100 mls/hr IV ONETIME ONE Stop: 02/21/17 11:03 Last Admin: 02/21/17 14:20 Dose: Not Given Dextrose/Lactated Ringer's (Dextrose 5%-Lactated Ringers) 1,000 mls @ 125 mls/ hr IV ASDIRECTED [facility] Stop: 02/21/17 21:08 Last Admin: 02/21/17 16:27 Dose: Not Given Cefazolin Sodium/Dextrose 1 gm (/ Premix) 50 mls @ 100 mls/hr IV Q8H [facility] Stop: 02/22/17 01:29 Last Admin: 02/22/17 00:55 Dose: 100 mls/hr Metoclopramide HCl (Reglan) 10 mg IVPUSH ONETIME ONE Stop: 02/21/17 10:35 Last Admin: 02/21/17 10:37 Dose: 10 mg Metoclopramide HCl (Reglan) Confirm Administered Dose 10 mg .ROUTE .STK-MED ONE Stop: 02/21/17 10:36 Last Admin: 02/21/17 14:58 Dose: Not Given Sodium Chloride (Saline Flush) 10 ml FLUSH ASDIRECTED PRN PRN Reason: Keep Vein Open *Q Meaningful Use (DIS) - VTE *Q VTE Criteria *Q: - Stroke *Q Stroke Criteria *Q: - AMI *Q AMI Criteria *Q:
[2017-02-24] MEDS: Acetaminophen/oxyCODONE 325-5 MG Tab PO PRN (10:19)
[2017-03-01 07:07] VITALS: BP 112/59
== END 2017-02-24 11:30 | disposition home or self-care (01) | DRG 766 ==
LOC: JD.OBCHECK 09:25 → JD.OB 09:29 → JD.OBCHECK 10:34 → JD.OB 10:35
PROVIDERS: ADMIT Obstetrics & Gynecology; ATTEND Obstetrics & Gynecology
PROC: 10D00Z1 Extraction of Products of Conception, Low, Open Approach (ICD-10-PCS; principal; 2017-02-21)
DX: O45.93 Premature separation of placenta, unspecified, third trimester (principal); O99.334 Smoking (tobacco) complicating childbirth; Z3A.35 35 weeks gestation of pregnancy; Z37.0 Single live birth
CPT/HCPCS: 01961; 36415; 36600; 80306; 82803; 85027; 85384; 85610; 85730; 86850; 86900; 86901; 88307; 88307-26; A9270-GY; J0690; J2765; J7120